=== PATIENT | male | born 1955 | race Caucasian/White ===

== ENCOUNTER 2017-01-17 13:55 | Day surgery (SDC) | payer OTHER ==
[~2017-01-17] VITALS: Ht 175.3 cm; Wt 102.6 kg
[~2017-01-17 13:55] MED LIST: AMLO10TA3 PO; ASPI-973 PO; CETI5TAB28 PO; ESOM40CA41 PO; LOSA100T29 PO; METO50TA3 PO; ROPI1TAB2 PO; SILD100T PO; SPIR25TA3 PO; TRET45GE TP
[2017-01-17 14:09] VITALS: BP 141/83; PULSE 48; RESP 14; O2SAT 97
[2017-01-17] MEDS ORDERED: 0.9% Sodium Chloride 1,000 ML IV PRN (16:17)
[2017-01-17] MEDS ORDERED: Sodium Chloride LOK Flush 10 mL Syringe IV PRN (16:20)
[2017-01-17] MEDS ORDERED: fentaNYL-PF 50 mCg/mL 2 mL Inj IVPUSH PRN (16:20)
[2017-01-17 17:08] VITALS: BP 146/77; PULSE 53; RESP 15; O2SAT 97
[2017-01-17 17:15] VITALS: BP 147/81; PULSE 55; RESP 15; O2SAT 98
--- NOTE | 2017-01-17 18:18 | ENDO ---
[address] [address] ENDOSCOPY PROCEDURE PATIENT: SPENCER DAY : 1955 MR#: [id number] ADMIT: 01/17/2017 JOB ID: [id number] DATE OF SERVICE: 01/17/2017 PROCEDURE: Colonoscopy. INDICATIONS: Screening. Patient with a history of colon polyps and family history of colon cancer. Patient's ASA classification is two. Mallampati score is two. MEDICATIONS: Versed 5 mg, fentanyl 100 mcg. INSTRUMENT USED: PCFH-180AL PREPARATION QUALITY: Fair. PROCEDURE DETAILS: After informed consent was obtained, the patient was brought to the GI suite, where he was placed on oxygen via nasal cannula and monitored with continuous pulse oximeter, telemetry, and blood pressure monitoring. A time-out was performed. Then, he was placed in a left lateral decubitus position and medications were administered for sedation. Digital rectal exam was performed, which was unremarkable. The colonoscope was then inserted into the rectum and advanced under direct visualization to the cecum, which was identified by the presence of the ileocecal valve and appendiceal orifice. Once the cecum was reached, the colonoscope was withdrawn back into the rectum. Mucosa and lumen were examined. In the rectum, retroflexion was performed. Following retroflexion, remaining air in the rectum was suctioned, and procedure was completed. FINDINGS: 1. In the cecum, there was a diminutive polyp that was removed with cold biopsy forceps. 2. In the ascending colon, there were two polyps that measured approximately 5 mm and 7 mm. Both polyps were removed using a hot snare. 3. The larger polyp following removal, there was bleeding at the site and therefore one hemoclip was placed for hemostasis. Hemoclip was placed successfully. 4. There was also a diminutive polyp in the ascending colon that was removed with cold biopsy forceps. 5. In the transverse colon, there was a pedunculated polyp that measured approximately 7 mm. Polyp was removed piecemeal using a hot snare. The remainder of the colon examined was otherwise unremarkable. IMPRESSION: 1. Cecal polyp. 2. Three ascending colon polyps. 3. One transverse colon polyp. RECOMMENDATIONS: 1. Avoid NSAIDs and anticoagulants for 72 hours. 2. Repeat colonoscopy in three years. COMPLICATIONS: None. ESTIMATED BLOOD LOSS: Less than 10 mL.
--- NOTE | 2017-01-23 12:06 | PATH ---
SURGICAL PATHOLOGY Attending Physician:Nitin Jacobsen CASE STATUS: Signed Out PATIENT NAME: SPENCER DAY PID: [id number] : 1955 DATE COLLECTED:01/17/2017 00:00 SPECIMEN: 1: Colon, Polyp 2: Colon, Polyp 3: Colon, Polyp CLINICAL HISTORY: POLYPS 1). CECAL POLYP X1 2). ASCENDING COLON POLYPS X3 3). TRANSVERSE COLON POLYP X1 FINAL DIAGNOSIS: 1. Cecal Polyp x1: Colonic mucosa with intramucosal lymphoid aggregates. Negative for serrated lesion, adenoma, dysplasia and malignancy. 2. Ascending Colon Polyps x3, Biopsy: One fragment of sessile serrated adenoma. Three fragments of tubular adenoma. 3. Transverse Colon Polyp x1, Biopsy: Tubulovillous adenoma. Negative for high-grade dysplasia and malignancy. ICD10: D12.6 GROSS DESCRIPTION: The specimen is received in three formalin filled containers labeled with the patient's name. 1). The specimen is labeled "cecal polyp" and consists of 2 portions of tissue which aggregate to zero 3 x 0.3 x 0.2 CM. The specimen is entirely submitted in cassette 1A. 2). The specimen is labeled "ascending colon polyps" and consists of 4 portions of tissue which aggregate to 0.6 x 0.6 x 0.4 CM. The specimen is entirely submitted in cassette 2A. 3). The specimen is labeled "transverse colon polyp" and consists of multiple portions of tissue which aggregate to 0.3 x 0.3 x 0.3 CM. The specimen is entirely submitted in cassette 3A. 01/18/2017DC ICD-9 CODES: CPT CODES: 1: 99835 2: 13486 3: 93815 Electronically Signed Out Reymundo Dumas MD, PhD [facility]ology [facility] [address] [place] [address], [place] [address] Technical component performed at [facility], [facility] [address], [place], [address]
== END 2017-01-17 23:59 | disposition home or self-care (01) ==
LOC: END 13:55
PROVIDERS: ATTEND Internal Medicine Gastroenterology
DX: Z12.11 Encounter for screening for malignant neoplasm of colon (principal); D12.0 Benign neoplasm of cecum; D12.2 Benign neoplasm of ascending colon; D12.3 Benign neoplasm of transverse colon; Z80.0 Family history of malignant neoplasm of digestive organs; E11.9 Type 2 diabetes mellitus without complications; E78.5 Hyperlipidemia, unspecified; I10 Essential (primary) hypertension; G47.30 Sleep apnea, unspecified; N40.0 Benign prostatic hyperplasia without lower urinary tract symptoms; K21.9 Gastro-esophageal reflux disease without esophagitis; Z86.11 Personal history of tuberculosis; Z87.891 Personal history of nicotine dependence
CPT/HCPCS: 45380; 45385; 99153; G0500; J2250; J3010; J7030